=== PATIENT | female | born 1970 | race Caucasian/White ===

== ENCOUNTER 2017-04-02 17:33 | Emergency (ER) | payer BC ==
[~2017-04-02] VITALS: Ht 162.6 cm; Wt 95.3 kg
[~2017-04-02 17:33] MED LIST: AMLO5TAB PO; ASPIRIN 81MG TA81 MG PO; CELEXA20 MG PO; HYDROCHLOROTHIA25 M1 PO; LIPITOR40 MG PO; METFORMIN500 MG PO
[2017-04-02 19:07] LABS: URINE BILIRUBIN - DIPSTICK NEGATIVE (NEG); URINE BLOOD NEGATIVE (NEG)
[2017-04-02 19:08] LABS: HEMOGLOBIN 13.4 g/dL (12.2-16.2); LYMPH # 2.1 K/mm3 (0.7-4.5); LYMPH % 21.4 % (10-50.0)
--- NOTE | 2017-04-02 19:21 | Emergency Room Report ---
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 N Clinical Suspician of Infection? N Mental Status: 1 - Regular (Normal Baseline) Sepsis Risk:Low Sepsis Risk Have you (or family members/close friends) recently traveled outside the [place]? N If Yes, where/when: Have you had exposure to infectious disease within the past month? N TB? Other? Specify: Source patient, RN notes reviewed, family, old records Exam Limitations no limitations Comment rt flank pain with no fever or hematuria and no rash which started today Cardiac Chest Pain Chest pain indicative of cardiac No Timing/Duration this evening Severity moderate ALLERGIES Coded Allergies: No Known Allergies (03/10/16) Home Medications Reported Medications Atorvastatin Calcium (Atorvastatin) 40 MG PO DAILY HYDROCHLOROTHIAZIDE (Hydrochlorothiazide) 25 MG PO DAILY Amlodipine Besylate (Amlodipine) 5 MG PO DAILY CITALOPRAM HYDROBROMIDE (Citalopram HBr) 20 MG PO DAILY ASPIRIN (Aspirin) 81 MG PO DAILY Metformin HCL (Metformin) 500 MG PO History Medical History General Hypertension? Yes Hyperlipidemia? Yes Diabetes? Yes Insulin Dependent: No Insulin Pump: No Home FSBS? No Anxiety? Yes Depression? 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 Respiratory denies cough, denies shortness of breath, denies wheezing Cardiovascular denies chest pain, denies palpitations, denies syncope Gastrointestinal denies abdominal pain, denies diarrhea, denies vomiting Genitourinary denies: abnormal vaginal bleeding, dysuria, frequency, hesitancy, hematuria. Musculoskeletal denies back pain, denies joint pain, denies joint swelling, denies neck pain Skin denies rash Psychiatric/Neurological denies headache, denies seizure Physical Exam Vital Signs Vital Signs Date Time Temp Pulse Resp B/P Pulse O2 O2 Flow FiO2 Ox Delivery Rate 04/02 1902 18 04/02 1836 98.7 70 18 164/102 100 - WBC >12,000 or <4,000 or 10% bands? 2 or more SIRS Criteria Met? B/P:164/102 MAP:122 Creatinine >2.0? UA output<0.5ml/kg/hr for 2 hrs? Platelet count >100,000? Lactate >2.0mmol/1? INR >1.2 or PTT > than 60 sec? Evidence of Organ Dysfunction? Provider documented clinical suspician of infection? N Sepsis Criteria Count: 0 Sepsis Risk: Low Sepsis Risk General Appearance no apparent distress Eye Exam - bilateral eye PERRL, bilateral eye EOMI Ear, Nose, Throat normal ENT inspection Neck supple Respiratory Status No: respiratory distress. 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 No Results/Orders Laboratory Tests 04/02/170: Sodium 136, Potassium 3.4 L, Chloride 100, Carbon Dioxide 28, BUN 14, Creatinine 1.1 H, Estimated Creat Clear 94, Estimated GFR (MDRD) 53 L, Glucose 143 H, Calcium 8.8, Total Bilirubin 0.3, AST 20, ALT 30, Alkaline Phosphatase 99, Total Protein 7.9, Albumin 4.0, Globulin 3.9 H, Albumin/Globulin Ratio 1.0 L, WBC 10.0, RBC 4.47, Hgb 13.4, Hct 39.2, MCV 87.7, RDW 13.3, Plt Count 283, MPV 7.9, Gran % 72.9, Gran # 7.3, Lymphocytes % 21.4, Monocytes % 3.9, Eosinophils % 1.5, Basophils % 0.3, Lymphocytes # 2.1, Monocytes # 0.4, Eosinophils # 0.2, Basophils # 0.0, PUBS MCHC 34.2, MCH 30.0 04/02/171844: Urine Color YELLOW, Urine Appearance SL CLOUDY, Urine pH 6.0, Ur Specific [place] 1.020, Urine Protein NEGATIVE, Urine Ketones NEGATIVE, Urine Blood NEGATIVE, Urine Nitrate NEGATIVE, Urine Bilirubin NEGATIVE, Urine Urobilinogen 0.2, Ur Leukocyte Esterase 1+ H, Urine RBC NONE, Urine WBC 5-10, Ur Squamous Epith Cells TNTC, Urine Renal Cells OCC, Urine Bacteria 1+, Urine Glucose NEGATIVE Current Medication Orders Sig/Gayle Start time Last Medication Dose Route Stop Time Status Admin Acetaminophen/ 1 FARAZ ONCE ONE 04/02 2015 AC Codeine Phosphate PO 04/02 2016 Cephalexin 500 MG ONCE ONE 04/02 2015 AC Monohydrate PO 04/02 2016 Ketorolac 30 MG ONCE ONE 04/02 1900 DC 04/02 Tromethamine IV 04/02 1901 190 Ondansetron HCl 4 MG ONCE ONE 04/020 DC 04/02 IV 04/02 1901 190 Sodium Chloride 1,000 ML .Q1H1M 04/02 1900 DC 04/02 IV 04/02 2000 190 Sodium Chloride 10 ML PRN PRN 04/02 1900 AC IV 04/03 1857 Ketorolac 0 .STK-MED ONE 04/02 1858 DC Tromethamine .ROUTE Ondansetron HCl 0 .STK-MED ONE 04/02 1858 DC .ROUTE Ondansetron HCl 0 .STK-MED ONE 04/02 1857 DC .ROUTE Sodium Chloride 1,000 ML .STK-MED ONE 04/02 1857 DC IV Sodium Chloride 10 ML PRN PRN 04/02 1845 AC IV 04/03 1842 Orders Procedure Date/time Status DIET-NOTHING BY MOUTH 04/03 B Active CULTURE, URINE 04/[address] ABD & PELVIS W/O CONTRAST 04/[address] ABD/PELVIS REQ 04/02 1843 Complete IV SALINE LOCK 04/02 1843 Active URINALYSIS/COMPLETE 04/02 1843 Complete CBC WITH AUTO DIFF 04/02 1843 Complete CHEM 12 PROFILE 04/02 1843 Complete XRAY/CT/US XRAY/CT/US CT abdomen, pelvis CT interpretation by discussed w/radiologist Time results known: 1950 CT Results abnormal (see report) Departure Departure Time of Disposition 2002 Disposition DC Home or Self Care(routine) Clinical Impression Primary Impression: Flank pain, acute Secondary Impressions: Hydrosalpinx Condition STABLE Referrals Valarie MOLINA (Family) Patient Instructions DI for Flank Pain Additional Instructions use meds and see pcp for follow up and check urine culture and pelvic u/s Discharge Counseling Counseled pt/family regarding diagnosis, test results, medications/RX, follow up needs Prescriptions Current Visit Scripts CEPHALEXIN (Keflex 500MG Capsule) 500 MG PO Q8H #21 [facility] Critical Care Critical Care No at 2005
[2017-04-02 19:57] LABS: URINE SQUAMOUS CELLS TNTC #/hpf (0-5)
[2017-04-02 19:58] LABS: URINE RENAL CELLS OCC #/HPF
[2017-04-02] MEDS ORDERED: KEFLEX 500MG.500 MG PO (20:04)
[2017-04-02 20:23] VITALS: BP 140/82
--- NOTE | 2017-04-03 06:14 | RADIOLOGY REPORT PS360 ---
CT ABD PELVIS W/O CONTRAST CLINICAL INDICATION: Right flank pain ABD PAIN ORDERING PHYSICIAN: Fabiola Randolph MD PATIENT AGE: 47 years COMPARISON: 03/10/2016 TECHNIQUE: Axial images obtained with sagittal and coronal reformats. PROCEDURE: Oral Contrast: None IV Contrast: None . FINDINGS: Lung bases are clear. The liver, gallbladder, spleen, adrenal glands, and pancreas are unremarkable. The left kidney is atrophic with 2 stones in the lower pole the largest of which measures 6 mm. No obstructing ureteral calculi apparent. Right kidney has an unremarkable appearance. No evidence of appendicitis. No evidence of diverticulitis. No intestinal obstruction or free air. Multiple unopacified bowel are present in the pelvis which could obscure or mimic pathology. Elongated isodensity is present in the left adnexa at 5.3 x 2 cm and may represent either an enlarged ovary or hydrosalpinx. Pelvic ultrasound may be of further value. No acute bony anomalies. IMPRESSION: 1. Atrophic left kidney with left nephrolithiasis. 2. Tubular shaped isodensity left adnexa and may be related to an enlarged elongated ovary or hydrosalpinx. Pelvic ultrasound may be of further value.
== END 2017-04-02 20:24 | disposition home or self-care (01) ==
LOC: UTC 17:33 → ER 17:37
PROVIDERS: Nurse Practitioner Family
DX: R10.9 Unspecified abdominal pain (principal); N70.11 Chronic salpingitis
CPT/HCPCS: J2405